=== PATIENT | female | born 1945 | race Caucasian/White ===

== ENCOUNTER 2016-10-23 12:24 | Emergency (ER) | payer MEDICARE, OTHER ==
[~2016-10-23] VITALS: Ht 165.1 cm; Wt 97.1 kg
[~2016-10-23 12:24] MED LIST: ACET65TA PO; ALEN70TA39 PO; AMLO5TAB OR; AMLO5TAB PO; AMLO5TAB2 PO; ASPI81TA83 PO; BABY81CH OR; BENZEPRIL; BUME1TAB OR; BUME2TAB PO; BUPR150T3 PO; CALCCHW12 OR; CALCCHW12 PO; COUMADIN PO; DESYREL PO; FERR325T PO; FERR325T3 PO; FERR83TA OR; FLUO20CA8 PO; HYDR10TA3 OR; IRON28TA OR; LEVO100T OR; LEVO100T PO; LEVO125T41 PO; LEVO88TA4 OR; LISI2.5T3 PO; METF500T4 PO; MILKSUS PO; OMEP20TA7 PO; PERC5TAB6 PO; PERC5TAB8 PO; PERC7.5T8 PO; PRAV40TA2 PO; PRIL20CA OR; PROZ20CA OR; PROZ20CA PO; TRAZ50TA4 PO; TRAZADONE PO; byetta OR
[2016-10-23] MEDS ORDERED: VITA100041 PO (12:38)
[2016-10-23] MEDS ORDERED: ASPI81TA85 PO (12:38)
[2016-10-23] MEDS ORDERED: OMEP20CA3 PO (12:38)
[2016-10-23] MEDS ORDERED: CHEW500C2 PO (12:38)
[2016-10-23] MEDS ORDERED: ALEN70SO PO (12:38)
[2016-10-23] MEDS ORDERED: FLAXOIL4 PO (12:38)
[2016-10-23] MEDS ORDERED: NORCO, ANEXSIA 5/325MG TABLET (HYDROcodone/ACETAMINOPHEN) PO ONE (13:30)
[2016-10-23 13:44] LABS: BASO % 0.5 % (0.0-1.0); EOS # 0.2 K/mm3 (0.0-0.50); LARGE UNSTAINED CELL # 0.2 K/mm3 (0.0-0.4); LARGE UNSTAINED CELL % 1.9 % (0.0-4.0); LYMPH # 1.9 K/mm3 (1.5-4.5); LYMPH % 22.5 % (24.0-44.0); MEAN CORPUSCULAR HEMOGLOBIN 32.7 pg (27.0-33.0); MEAN CORPUSCULAR HGB CONC 32.2 g/dl (32.0-36.5); MEAN CORPUSCULAR VOLUME 101.7 fl (80.0-96.0); MONO # 0.5 K/mm3 (0.0-0.8); MONO % 5.5 % (0.0-5.0); NEUTROPHILS # 5.6 K/mm3 (1.8-7.7); NEUTROPHILS % 67.8 % (36.0-66.0); PLATELET COUNT, AUTOMATED 261 k/mm3 (150-450); RED CELL DISTRIBUTION WIDTH 12.6 % (11.5-14.5); WHITE BLOOD COUNT 8.3 K/mm3 (4.0-10.0)
[2016-10-23 14:11] LABS: CALCIUM LEVEL 8.4 MG/DL (8.8-10.2); CREATININE FOR GFR 1.32 MG/DL (0.55-1.02); GLOMERULAR FILTRATION RATE 42.4 (>39); POTASSIUM SERUM 3.8 MEQ/L (3.5-5.1); URIC ACID 8.5 MG/DL (2.6-6.0)
--- NOTE | 2016-10-23 14:55 | REP ---
Clinical: Pain. Technique: AP, lateral, bilateral oblique views of the left ankle. Findings: Advanced osteopenia and diffuse degenerative arthritic changes limit evaluation for subtle injury. No obvious acute fracture or dislocation is appreciated. Mild lateral widening of the ankle mortise suggests ligamentous laxity and likely chronic. Diffuse soft tissue swelling and vascular calcifications are identified along with moderate calcaneal heal spur. Impression: Advanced osteopenia and degenerative changes limit evaluation. No obvious acute fracture or dislocation. Signed by Reji Townsend MD 10/23/2016 02:46 P
--- NOTE | 2016-10-23 14:56 | REP ---
Clinical: Pain predominately centered at the first metatarsal. Technique: AP, lateral, bilateral oblique views of the left foot. Findings: Advanced osteopenia and diffuse degenerative arthritic changes limit evaluation for subtle injury. No obvious acute fracture or dislocation is appreciated. Diffuse soft tissue swelling and vascular calcifications are identified along with moderate calcaneal heal spur. Impression: Advanced osteopenia and degenerative changes limit evaluation. No obvious acute fracture or dislocation. Signed by Reji Townsend MD 10/23/2016 02:47 P
[2016-10-23 15:12] VITALS: BP 120/57
[2016-10-23] MEDS ORDERED: NORCOTAB PO (15:31)
== END 2016-10-23 15:41 | disposition home or self-care (01) ==
LOC: M ED 13:30
DX: M10.9 Gout, unspecified (principal); I10 Essential (primary) hypertension; E11.9 Type 2 diabetes mellitus without complications; I50.9 Heart failure, unspecified; E78.9 Disorder of lipoprotein metabolism, unspecified; E07.9 Disorder of thyroid, unspecified; F33.9 Major depressive disorder, recurrent, unspecified; M54.5 Low back pain; G47.33 Obstructive sleep apnea (adult) (pediatric); Z79.84 Long term (current) use of oral hypoglycemic drugs; Z79.899 Other long term (current) drug therapy; Z79.82 Long term (current) use of aspirin; Z88.0 Allergy status to penicillin

== ENCOUNTER → 2017-01-13 | Outpatient (CLI) | payer OTHER ==
[~2017-01-13] MED LIST changes: +ALEN70SO PO; +ASPI81TA85 PO; +CHEW500C2 PO; +FLAXOIL2 PO; +NORCOTAB PO; +OMEP20CA3 PO; +PERC5TAB12 PO; -PERC5TAB6 PO; +TRAZ50TA11 PO; -TRAZ50TA4 PO; +VITA-182 PO
--- NOTE | 2017-01-13 13:21 | REP ---
Right foot four views: There are no comparisons. There is demineralization. There is no fracture or dislocation. There is mild osteoarthritis of the PIP and DIP articulations, great toe MTP articulation and the tarsal ossicles. There are small calcaneal plantar and Achilles spurs. There are small calcifications inferior and anterior to the plantar spur compatible with plantar fasciitis. There is questionable soft tissue edema over the dorsum. This should be confirmed clinically. Signed by Enoc Pleitez MD 01/13/2017 01:12 P
== END ==
LOC: M WUC 12:43
PROVIDERS: ATTEND Physician Assistant
DX: M77.31 Calcaneal spur, right foot (principal)

== ENCOUNTER → 2017-02-11 | Outpatient (CLI) | payer OTHER ==
--- NOTE | 2017-02-11 12:12 | REPMRS ---
Patient History The patient states she had a clinical breast exam in 2016. Patient is postmenopausal and is nulliparous. Family history of colorectal cancer in maternal grandmother at age 50 or over and unknown cancer in brother at age 50 or over. Digital Mammo Screening Bilat: February 11, 2017 - Exam #: [id number] Bilateral CC and MLO view(s) were taken. Technologist: Stephie Ronquillo, Technologist Prior study comparison: January 06, 2016, bilateral digital mammo screening bilat performed at [facility]. January 14, 2015, bilateral digital mammo screening bilat performed at [facility]. October 24, 2013, bilateral digital mammo screening bilat performed at [facility]. FINDINGS: The breast tissue is almost entirely fat. There has been no change in the appearance of the mammogram from the prior studies. There is no interval development of dominant mass, architectural distortion, or clustered microcalcification typical of malignancy. ASSESSMENT: BI-RADS/ACR category 1 mammogram. Negative. Recommendation Routine screening mammogram of both breasts in 1 year (for women over age 40). This mammogram was interpreted with the aid of an FDA-approved computer-aided dectection system. Electronically Signed By: Fernie Armenta MD 02/11/17 [id number]
== END ==
LOC: M RAD 10:08
PROVIDERS: ATTEND Nurse Practitioner Adult Health
DX: Z12.31 Encounter for screening mammogram for malignant neoplasm of breast (principal)

== ENCOUNTER → 2017-03-31 | Outpatient (REF) | payer OTHER ==
[2017-03-31 13:55] LABS: URIC ACID 3.1 MG/DL (2.6-6.0)
== END ==
LOC: M LAB REF 12:55
PROVIDERS: ATTEND Nurse Practitioner Adult Health
DX: M10.9 Gout, unspecified (principal); R20.9 Unspecified disturbances of skin sensation

== ENCOUNTER → 2017-06-10 | Outpatient (CLI) | payer OTHER ==
[2017-06-10 12:47] LABS: HEMATOCRIT 36.2 % (36.0-47.0); HEMOGLOBIN 11.6 g/dl (12.0-16.0); MEAN CORPUSCULAR HEMOGLOBIN 32.2 pg (27.0-33.0); MEAN CORPUSCULAR VOLUME 100.6 fl (80.0-96.0); PLATELET COUNT, AUTOMATED 341 10^3/uL (150-450); RED CELL DISTRIBUTION WIDTH 14.5 % (11.5-14.5); WHITE BLOOD COUNT 8.9 10^3/uL (4.0-10.0)
[2017-06-10 13:03] LABS: INR 0.95; PROTHROMBIN TIME 12.8 SECONDS (12.4-14.5)
[2017-06-10 13:04] LABS: APPEARANCE, URINE CLEAR (CLEAR); BACTERIA, URINE AUTO NEGATIVE (NEGATIVE); BILIRUBIN, URINE AUTO NEGATIVE (NEGATIVE); BLOOD, URINE BLOOD NEGATIVE (NEGATIVE); COLOR, URINE YELLOW (YELLOW); GLUCOSE, URINE (UA) AUTO NEGATIVE (NEGATIVE); KETONE, URINE AUTO NEGATIVE (NEGATIVE); LEUKOCYTE ESTERASE, URINE AUTO NEGATIVE (NEGATIVE); NITRITE, URINE AUTO NEGATIVE (NEGATIVE); PROTEIN, URINE AUTO NEGATIVE (NEGATIVE); RBC, URINE AUTO 0 /HPF (0-3); SPECIFIC GRAVITY URINE AUTO 1.021 (1.002-1.035); SQUAMOUS EPITHELIAL CELL UR AU 0 /HPF (0-6); WBC, URINE AUTO 1 /HPF (0-3)
[2017-06-10 13:05] LABS: ALBUMIN 3.7 GM/DL (3.2-5.2); ALBUMIN/GLOBULIN RATIO 1.09 (1.00-1.93); ALKALINE PHOSPHATASE 120 U/L (45-117); ALT/SGPT 38 U/L (12-78); ANION GAP 7 MEQ/L (8-16); AST/SGOT 39 U/L (7-37); BILIRUBIN,TOTAL 0.2 MG/DL (0.2-1.0); BLOOD UREA NITROGEN 41 MG/DL (7-18); CALCIUM LEVEL 10.6 MG/DL (8.8-10.2); CARBON DIOXIDE LEVEL 31 MEQ/L (21-32); CHLORIDE LEVEL 104 MEQ/L (98-107); CREATININE FOR GFR 1.22 MG/DL (0.55-1.02); GLOMERULAR FILTRATION RATE 46.3 (>39); GLUCOSE, FASTING 109 MG/DL (83-110); POTASSIUM SERUM 4.5 MEQ/L (3.5-5.1); SODIUM LEVEL 142 MEQ/L (136-145); TOTAL PROTEIN 7.1 GM/DL (6.4-8.2)
[2017-06-10 13:50] LABS: ERYTHROCYTE SEDIMENTATION RATE 65 mm/hr (0-30)
== END ==
LOC: M ADMPAT 10:33
DX: M17.12 Unilateral primary osteoarthritis, left knee (principal); Z79.01 Long term (current) use of anticoagulants
CPT/HCPCS: 71046

== ENCOUNTER → 2017-06-16 | Outpatient (REF) | payer OTHER ==
[2017-06-16 16:00] LABS: PHOSPHORUS LEVEL 2.8 MG/DL (2.5-4.9)
[2017-06-16 16:12] LABS: PTH INTACT 116.4 PG/ML (14.0-72.0)
== END ==
LOC: M LAB REF 15:29
DX: E83.52 Hypercalcemia (principal)
CPT/HCPCS: 84100

== ENCOUNTER 2017-06-22 07:13 | Inpatient (IN) | payer OTHER ==
[2017-06-22] MEDS: LR 1,000 ML IV ×3 (08:10→12:30)
[2017-06-22 08:18] LABS: GLUCOSE, FASTING 115 MG/DL (83-110)
[2017-06-22] MEDS ORDERED: MIDAZOLAM INJ 2 MG/2 ML VIAL (J2250) As Ordered ×2 (08:42→08:52)
[2017-06-22] MEDS ORDERED: fentaNYL 100 MCG/2 ML INJECTION (J3010) As Ordered ×2 (08:42→08:52)
[2017-06-22] MEDS: fentaNYL 100 MCG/2 ML INJECTION (J3010) IV (09:22)
[2017-06-22] MEDS: MIDAZOLAM INJ 2 MG/2 ML VIAL (J2250) IV (09:22)
[2017-06-22] MEDS ORDERED: ePHEDrine INJ 50 MG/ML VIAL As Ordered (09:56)
[2017-06-22] MEDS: CLINDAMYCIN 900 MG in APPROPRIATE DILUENT 1 EA IV ×2 (09:58→18:08)
[2017-06-22] MEDS: CLINDAMYCIN INJ 900MG/6ML VIAL As Ordered (10:16)
[2017-06-22] MEDS: EPINEPHrine INJ 1 MG/ML 1ML AMP As Ordered (10:16)
[2017-06-22] MEDS: TRANEXAMIC ACID 100 MG/ML 10ML VIAL As Ordered (10:17)
[2017-06-22] MEDS: BUPIVACAINE LIPOSOME/PF 1.3% 20 ML VIAL (13.3MG/ML)(EXPAREL) As Ordered (10:51)
[2017-06-22] MEDS ORDERED: ROPIvacaine 0.5% 30 ML INJECTION (J2795 PER 1MG) (10:52)
[2017-06-22] MEDS ORDERED: LIDOCAINE 1% MDV 20ML VIAL (10:52)
[2017-06-22] MEDS ORDERED: dexameTHASONE 10 MG/1 ML VIAL PRES.FREE (J1100) (10:52)
[2017-06-22] MEDS ORDERED: MORPHINE 1MG/ML IN 0.9% NACL 100ML IV BAG As Ordered (11:47)
[2017-06-22 12:10] LABS: BEDSIDE GLUCOSE 128 MG/DL (83-110)
[2017-06-22] MEDS ORDERED: NALOXONE INJ 0.4 MG/1 ML VIAL (J2310) IV (12:30)
[2017-06-22] MEDS ORDERED: EPIDURAL/PCA KEYS XX (12:30)
[2017-06-22] MEDS ORDERED: diphenhydrAMINE INJ 50MG/ML VIAL (J1200) IV (12:30)
[2017-06-22] MEDS ORDERED: NALBUPHINE HCL 10 MG/ML AMP (J2300) IV ×2 (12:30)
[2017-06-22] MEDS ORDERED: FLEET ENEMA PR (12:30)
[2017-06-22] MEDS ORDERED: ACETAMINOPHEN TAB 650MG DOSE (2X325MG) PO (12:30)
[2017-06-22] MEDS ORDERED: fentaNYL 100 MCG/2 ML INJECTION (J3010) IV (12:30)
[2017-06-22] MEDS ORDERED: ONDANSETRON 4MG/2ML VIAL (J2405) IV ×3 (12:30)
[2017-06-22] MEDS ORDERED: MORPHINE 1MG/ML IN 0.9% NACL 100ML IV BAG IV (12:30)
[2017-06-22] MEDS ORDERED: GLUCOSE 4 GM CHEW TABLET PO (17:15)
[2017-06-22] MEDS ORDERED: GLUCAGON FOR INJ 1 MG VIAL (J1610) SC (17:15)
[2017-06-22] MEDS ORDERED: DEXTROSE 50% 50 ML SYRINGE IV (17:15)
[2017-06-22] MEDS ORDERED: POLYVINYL ALCOHOL OPHTH SOLN 15 ML(LIQUITEARS) OU (17:15)
[2017-06-22] MEDS: HumaLOG INSULIN (NovoLOG) PER UNIT SC ×2 (17:30→20:47)
[2017-06-22] MEDS: WARFARIN SOD 5 MG TAB PO (18:08)
[2017-06-22] MEDS: FAMOTIDINE 20 MG TAB PO (20:31)
[2017-06-22] MEDS: PRAVASTATIN 20 MG TAB PO (20:31)
[2017-06-23] MEDS: LR 1,000 ML IV (01:30)
[2017-06-23] MEDS: CLINDAMYCIN 900 MG in APPROPRIATE DILUENT 1 EA IV (01:30)
[2017-06-23 02:10] LABS: BEDSIDE GLUCOSE 270 MG/DL (83-110)
[2017-06-23] MEDS: LEVOTHYROXINE 137MCG TABLET (0.137MG) PO (06:06)
[2017-06-23] MEDS ORDERED: ONDANSETRON 4 MG TAB (S0181) PO (06:30)
[2017-06-23] MEDS ORDERED: PERCOCET 5MG/325MG TAB PO (06:30)
[2017-06-23 06:58] LABS: HEMATOCRIT 30.8 % (36.0-47.0); MEAN CORPUSCULAR HEMOGLOBIN 32.4 pg (27.0-33.0); MEAN CORPUSCULAR HGB CONC 32.5 g/dl (32.0-36.5); MEAN CORPUSCULAR VOLUME 99.7 fl (80.0-96.0); PLATELET COUNT, AUTOMATED 239 10^3/uL (150-450); RED BLOOD COUNT 3.09 10^6/uL (4.00-5.40); RED CELL DISTRIBUTION WIDTH 14.7 % (11.5-14.5); WHITE BLOOD COUNT 8.8 10^3/uL (4.0-10.0)
[2017-06-23 07:16] LABS: INR 1.12; PROTHROMBIN TIME 14.6 SECONDS (12.4-14.5)
[2017-06-23 07:18] LABS: ANION GAP 8 MEQ/L (8-16); BLOOD UREA NITROGEN 25 MG/DL (7-18); CARBON DIOXIDE LEVEL 26 MEQ/L (21-32); CHLORIDE LEVEL 107 MEQ/L (98-107); CREATININE FOR GFR 0.99 MG/DL (0.55-1.02); GLOMERULAR FILTRATION RATE 58.9 (>39); GLUCOSE, FASTING 153 MG/DL (83-110); MAGNESIUM LEVEL 1.8 MG/DL (1.8-2.4); POTASSIUM SERUM 4.3 MEQ/L (3.5-5.1); SODIUM LEVEL 141 MEQ/L (136-145)
[2017-06-23] MEDS: MIRALAX *UNIT DOSE* 17GM PACKET PO (07:58)
[2017-06-23] MEDS: MOM 30ML SUSPENSION UDC PO (07:58)
[2017-06-23] MEDS: SENOKOT S TAB PO ×2 (07:59→20:40)
[2017-06-23] MEDS: FLUoxetine 20 MG CAP PO (07:59)
[2017-06-23] MEDS: buPROPion **XL** TABLET 150MG (WELLBUTRIN XL) PO (07:59)
[2017-06-23] MEDS: FERROUS SULFATE 325MG TAB PO (07:59)
[2017-06-23] MEDS: HumaLOG INSULIN (NovoLOG) PER UNIT SC ×4 (08:00→20:36)
[2017-06-23 11:13] LABS: BEDSIDE GLUCOSE 114 MG/DL (83-110)
[2017-06-23] MEDS: PERCOCET 5MG/325MG TAB PO ×2 (12:26→18:59)
[2017-06-23] MEDS: ALLOPURINOL 300 MG TAB PO (13:24)
[2017-06-23 17:23] LABS: BEDSIDE GLUCOSE 135 MG/DL (83-110)
[2017-06-23] MEDS: WARFARIN SOD 5 MG TAB PO (17:45)
[2017-06-23 20:34] LABS: BEDSIDE GLUCOSE 112 MG/DL (83-110)
[2017-06-23] MEDS: FAMOTIDINE 20 MG TAB PO (20:40)
[2017-06-23] MEDS: PRAVASTATIN 20 MG TAB PO (20:40)
[2017-06-24] MEDS: PERCOCET 5MG/325MG TAB PO ×3 (00:01→09:03)
[2017-06-24] MEDS: LEVOTHYROXINE 137MCG TABLET (0.137MG) PO (05:50)
[2017-06-24 06:07] LABS: BEDSIDE GLUCOSE 122 MG/DL (83-110)
[2017-06-24 06:45] LABS: HEMATOCRIT 27.8 % (36.0-47.0); HEMOGLOBIN 9.1 g/dl (12.0-16.0); MEAN CORPUSCULAR HEMOGLOBIN 33.1 pg (27.0-33.0); MEAN CORPUSCULAR HGB CONC 32.7 g/dl (32.0-36.5); MEAN CORPUSCULAR VOLUME 101.1 fl (80.0-96.0); PLATELET COUNT, AUTOMATED 201 10^3/uL (150-450); RED BLOOD COUNT 2.75 10^6/uL (4.00-5.40); RED CELL DISTRIBUTION WIDTH 15.1 % (11.5-14.5)
[2017-06-24 07:00] LABS: INR 1.25; PROTHROMBIN TIME 15.9 SECONDS (12.4-14.5)
[2017-06-24] MEDS: HumaLOG INSULIN (NovoLOG) PER UNIT SC (07:30)
[2017-06-24] MEDS: ENOXAPARIN 40 MG/0.4 ML SYRINGE (J1650) SC (09:01)
[2017-06-24] MEDS: FLUoxetine 20 MG CAP PO (09:01)
[2017-06-24] MEDS: MIRALAX *UNIT DOSE* 17GM PACKET PO (09:01)
[2017-06-24] MEDS: MOM 30ML SUSPENSION UDC PO (09:01)
[2017-06-24] MEDS: ALLOPURINOL 300 MG TAB PO (09:02)
[2017-06-24] MEDS: SENOKOT S TAB PO (09:02)
[2017-06-24] MEDS: buPROPion **XL** TABLET 150MG (WELLBUTRIN XL) PO (09:02)
[2017-06-24] MEDS: FERROUS SULFATE 325MG TAB PO (09:02)
[2017-06-24] MEDS: BUMETANIDE 1 MG TAB PO (09:02)
== END 2017-06-24 10:52 | disposition home health service (06) | DRG 470 ==
LOC: M OR 07:13 → M MS5PR 14:30
PROVIDERS: Orthopaedic Surgery
PROC: 0SRD0JA Replacement of Left Knee Joint with Synthetic Substitute, Uncemented, Open Approach (ICD-10-PCS; principal; 2017-06-22 09:30)
DX: M17.12 Unilateral primary osteoarthritis, left knee (principal); Z79.899 Other long term (current) drug therapy; Z88.0 Allergy status to penicillin; Z79.82 Long term (current) use of aspirin; E11.9 Type 2 diabetes mellitus without complications; I12.9 Hypertensive chronic kidney disease with stage 1 through stage 4 chronic kidney disease, or unspecified chronic kidney disease; E03.9 Hypothyroidism, unspecified; N18.3 Chronic kidney disease, stage 3 (moderate); K21.9 Gastro-esophageal reflux disease without esophagitis; D50.9 Iron deficiency anemia, unspecified; E78.5 Hyperlipidemia, unspecified; M10.9 Gout, unspecified; F32.9 Major depressive disorder, single episode, unspecified

== ENCOUNTER → 2017-06-27 | Outpatient (REF) | payer OTHER ==
[2017-06-27 16:24] LABS: INR 1.85; PROTHROMBIN TIME 21.9 SECONDS (12.4-14.5)
== END ==
LOC: M SHH 16:03
DX: Z79.01 Long term (current) use of anticoagulants (principal)
CPT/HCPCS: 85610

== ENCOUNTER → 2017-06-30 | Outpatient (REF) | payer OTHER ==
[2017-06-30 12:37] LABS: INR 2.58; PROTHROMBIN TIME 28.7 SECONDS (12.4-14.5)
== END ==
LOC: M SHH 11:47
DX: Z79.01 Long term (current) use of anticoagulants (principal)
CPT/HCPCS: 85610

== ENCOUNTER → 2017-07-04 | Outpatient (REF) | payer OTHER ==
[2017-07-04 10:56] LABS: INR 2.72
== END ==
LOC: M SHH 10:25
DX: Z79.01 Long term (current) use of anticoagulants (principal)
CPT/HCPCS: 85610

== ENCOUNTER → 2017-07-07 | Outpatient (REF) | payer OTHER | LOC: M SHH 15:17 | DX: Z79.01 Long term (current) use of anticoagulants (principal) ==

== ENCOUNTER → 2017-07-08 | Outpatient (REF) | payer OTHER ==
[2017-07-08 12:52] LABS: INR 2.28
== END ==
LOC: M SHH 11:15
DX: Z79.01 Long term (current) use of anticoagulants (principal)
CPT/HCPCS: 85610

== ENCOUNTER → 2017-07-11 | Outpatient (REF) | payer OTHER ==
[2017-07-11 15:28] LABS: INR 1.58; PROTHROMBIN TIME 19.3 SECONDS (12.4-14.5)
== END ==
LOC: M SHH 15:02
DX: Z79.01 Long term (current) use of anticoagulants (principal)
CPT/HCPCS: 85610

== ENCOUNTER → 2017-07-14 | Outpatient (REF) | payer OTHER ==
[2017-07-14 13:07] LABS: PROTHROMBIN TIME 16.5 SECONDS (12.4-14.5)
== END ==
LOC: M SHH 12:17
DX: Z51.81 Encounter for therapeutic drug level monitoring (principal); Z79.01 Long term (current) use of anticoagulants
CPT/HCPCS: 85610

== ENCOUNTER → 2017-07-18 | Outpatient (REF) | payer OTHER ==
[2017-07-18 16:29] LABS: INR 1.57; PROTHROMBIN TIME 19.2 SECONDS (12.4-14.5)
== END ==
LOC: M LAB REF 15:47
DX: Z79.01 Long term (current) use of anticoagulants (principal)
CPT/HCPCS: 85610

== ENCOUNTER → 2017-10-28 | Outpatient (REF) | payer OTHER ==
[2017-10-28 12:57] LABS: PTH INTACT 59.7 PG/ML (18.5-88.0)
[2017-10-28 13:02] LABS: PHOSPHORUS LEVEL 3.2 MG/DL (2.5-4.9)
== END ==
LOC: M LAB REF 12:08
DX: I12.9 Hypertensive chronic kidney disease with stage 1 through stage 4 chronic kidney disease, or unspecified chronic kidney disease (principal); N18.3 Chronic kidney disease, stage 3 (moderate)
CPT/HCPCS: 84100

== ENCOUNTER 2017-12-03 10:11 | Inpatient (IN) | payer OTHER ==
[2017-12-03 11:21] LABS: HEMATOCRIT 33.7 % (36.0-47.0); MEAN CORPUSCULAR HEMOGLOBIN 32.5 pg (27.0-33.0); MEAN CORPUSCULAR HGB CONC 32.6 g/dl (32.0-36.5); MEAN CORPUSCULAR VOLUME 99.7 fl (80.0-96.0); PLATELET COUNT, AUTOMATED 219 10^3/uL (150-450); RED BLOOD COUNT 3.38 10^6/uL (4.00-5.40); WHITE BLOOD COUNT 8.2 10^3/uL (4.0-10.0)
[2017-12-03] MEDS: NS 1,000 ML IV ×2 (11:27→14:41)
[2017-12-03] MEDS: MORPHINE 4 MG/ML 1ML VIAL/SYRINGE (J2270) IV ×2 (11:27→14:11)
[2017-12-03] MEDS: ONDANSETRON 4MG/2ML VIAL (J2405) IV (11:27)
[2017-12-03 11:37] LABS: INR 0.92; PROTHROMBIN TIME 12.4 SECONDS (12.1-14.4)
[2017-12-03 11:38] LABS: PARTIAL THROMBOPLASTIN TIME 24.8 SECONDS (25.4-37.6)
[2017-12-03 11:56] LABS: ANION GAP 9 MEQ/L (8-16); BLOOD UREA NITROGEN 31 MG/DL (7-18); CALCIUM LEVEL 9.9 MG/DL (8.8-10.2); CARBON DIOXIDE LEVEL 29 MEQ/L (21-32); CHLORIDE LEVEL 105 MEQ/L (98-107); CREATININE FOR GFR 1.15 MG/DL (0.55-1.30); FREE T4 1.26 NG/DL (0.76-1.46); GLOMERULAR FILTRATION RATE 49.5 (>39); GLUCOSE, FASTING 120 MG/DL (70-100); POTASSIUM SERUM 3.5 MEQ/L (3.5-5.1); SODIUM LEVEL 143 MEQ/L (136-145); THYROID STIMULATING HORMONE 0.698 uIU/ML (0.358-3.740)
[2017-12-03] MEDS ORDERED: GLUCOSE 4 GM CHEW TABLET PO (14:15)
[2017-12-03] MEDS ORDERED: BISACODYL 5 MG TAB PO (14:15)
[2017-12-03] MEDS ORDERED: COLCHICINE 0.6 MG TAB PO (14:15)
[2017-12-03] MEDS ORDERED: GLUCAGON FOR INJ 1 MG VIAL (J1610) SC (14:15)
[2017-12-03] MEDS ORDERED: ONDANSETRON 4MG/2ML VIAL (J2405) IV ×2 (14:15→22:30)
[2017-12-03] MEDS ORDERED: DEXTROSE 50% 50 ML SYRINGE IV (14:15)
[2017-12-03] MEDS ORDERED: POLYVINYL ALCOHOL OPHTH SOLN 15 ML(LIQUITEARS) OU (14:15)
[2017-12-03] MEDS ORDERED: MORPHINE 4 MG/ML 1ML VIAL/SYRINGE (J2270) IV ×2 (14:15→22:30)
[2017-12-03 16:26] LABS: BEDSIDE GLUCOSE 97 MG/DL (83-110)
[2017-12-03] MEDS: HumaLOG INSULIN (NovoLOG) PER UNIT SC ×2 (16:34→23:08)
[2017-12-03] MEDS: CLINDAMYCIN 600 MG in APPROPRIATE DILUENT 1 EA IV (18:00)
[2017-12-03] MEDS ORDERED: LIDOCAINE 2% INJ 100 MG/5 ML SDV (FOR ANES.) As Ordered (18:57)
[2017-12-03] MEDS ORDERED: PROPOFOL 200 MG/20 ML VIAL As Ordered ×2 (18:57→20:36)
[2017-12-03] MEDS ORDERED: fentaNYL 100 MCG/2 ML INJECTION (J3010) As Ordered (18:58)
[2017-12-03] MEDS ORDERED: MIDAZOLAM INJ 2 MG/2 ML VIAL (J2250) As Ordered (18:58)
[2017-12-03] MEDS: CLINDAMYCIN 600 MG/50 ML PREMIX BAG As Ordered (19:14)
[2017-12-03] MEDS ORDERED: ePHEDrine SULFATE 25 MG/5 ML(5MG/ML) SYRINGE As Ordered (19:56)
[2017-12-03] MEDS ORDERED: KETOROLAC 60 MG/2 ML VIAL (J1885) As Ordered (21:31)
[2017-12-03] MEDS ORDERED: ONDANSETRON 4MG/2ML VIAL (J2405) As Ordered (21:31)
[2017-12-03] MEDS: CLINDAMYCIN INJ 900MG/6ML VIAL As Ordered (21:42)
[2017-12-03] MEDS: BUPIVACAINE/EPIN 0.25% 30 ML VIAL As Ordered (21:43)
[2017-12-03] MEDS ORDERED: HEPARIN SOD (PORCINE) 5000 UNITS/ML VIAL SC (22:00)
[2017-12-03] MEDS: LR 1,000 ML IV ×2 (22:30→23:09)
[2017-12-03] MEDS ORDERED: fentaNYL 100 MCG/2 ML INJECTION (J3010) IV (22:30)
[2017-12-03] MEDS ORDERED: PERCOCET 5MG/325MG TAB PO (22:30)
[2017-12-03 23:06] LABS: BEDSIDE GLUCOSE 91 MG/DL (83-110)
[2017-12-03] MEDS: LEVOTHYROXINE 137MCG TABLET (0.137MG) PO (23:07)
[2017-12-03] MEDS: SENOKOT S TAB PO (23:07)
[2017-12-03] MEDS: FAMOTIDINE 20 MG TAB PO (23:08)
[2017-12-03] MEDS: PRAVASTATIN 20 MG TAB PO (23:08)
[2017-12-03] MEDS: OMEPRAZOLE 20 MG CAP PO (23:08)
[2017-12-03] MEDS: FLUoxetine 20 MG CAP PO (23:08)
[2017-12-03] MEDS: LATANOPROST 0.005% OPHTH SOLN 2.5 ML OU (23:09)
[2017-12-03] MEDS: HEPARIN SOD (PORCINE) 5000 UNITS/ML VIAL SQ (23:10)
[2017-12-04] MEDS: PERCOCET 5MG/325MG TAB PO ×5 (00:47→20:48)
[2017-12-04] MEDS: CLINDAMYCIN 600 MG in APPROPRIATE DILUENT 1 EA IV ×2 (03:56→08:18)
[2017-12-04 06:02] LABS: BASO % 0.5 % (0.0-1.0); EOS # 0.2 10^3/uL (0.0-0.50); EOS % 2.4 % (0.0-3.0); HEMATOCRIT 29.7 % (36.0-47.0); HEMOGLOBIN 9.5 g/dl (12.0-15.5); IMMATURE GRANULOCYTE % 0.5 % (0-3.0); LYMPH # 1.4 10^3/uL (1.5-4.5); LYMPH % 15.9 % (24.0-44.0); MEAN CORPUSCULAR HEMOGLOBIN 32.6 pg (27.0-33.0); MEAN CORPUSCULAR VOLUME 102.1 fl (80.0-96.0); MONO % 11.6 % (0.0-5.0); NEUTROPHILS # 5.9 10^3/uL (1.8-7.7); NEUTROPHILS % 69.1 % (36.0-66.0); PLATELET COUNT, AUTOMATED 186 10^3/uL (150-450); RED BLOOD COUNT 2.91 10^6/uL (4.00-5.40); RED CELL DISTRIBUTION WIDTH 15.1 % (11.5-14.5); WHITE BLOOD COUNT 8.5 10^3/uL (4.0-10.0)
[2017-12-04 06:06] LABS: ANION GAP 8 MEQ/L (8-16); BLOOD UREA NITROGEN 24 MG/DL (7-18); CALCIUM LEVEL 8.6 MG/DL (8.8-10.2); CARBON DIOXIDE LEVEL 29 MEQ/L (21-32); CHLORIDE LEVEL 107 MEQ/L (98-107); CREATININE FOR GFR 1.07 MG/DL (0.55-1.30); GLOMERULAR FILTRATION RATE 53.8 (>39); GLUCOSE, FASTING 125 MG/DL (70-100); POTASSIUM SERUM 3.6 MEQ/L (3.5-5.1); SODIUM LEVEL 144 MEQ/L (136-145)
[2017-12-04] MEDS: ASPIRIN ENTERIC 325 MG TAB PO (08:16)
[2017-12-04] MEDS: HumaLOG INSULIN (NovoLOG) PER UNIT SC ×4 (08:16→21:00)
[2017-12-04] MEDS: CALCIUM CARBONATE 500 MG CHEW U/D PO (08:16)
[2017-12-04] MEDS: BUMETANIDE 1 MG TAB PO (08:17)
[2017-12-04] MEDS: SENOKOT S TAB PO ×2 (08:17→20:49)
[2017-12-04] MEDS: buPROPion **XL** TABLET 150MG (WELLBUTRIN XL) PO (08:17)
[2017-12-04] MEDS: FERROUS SULFATE 325MG TAB PO (08:17)
[2017-12-04] MEDS: ALLOPURINOL 300 MG TAB PO (08:17)
[2017-12-04] MEDS: HEPARIN SOD (PORCINE) 5000 UNITS/ML VIAL SQ ×2 (08:18→20:47)
[2017-12-04] MEDS: METAMUCIL (PSYLLIUM) PACKET PO (08:19)
[2017-12-04] MEDS: VITAMIN D 1,000 INTERNATIONAL UNITS TABLET PO (08:20)
[2017-12-04] MEDS: ACETAMINOPHEN TAB 650MG DOSE (2X325MG) PO (08:23)
[2017-12-04] MEDS: LR 1,000 ML IV (11:00)
[2017-12-04 12:02] LABS: BEDSIDE GLUCOSE 131 MG/DL (83-110)
[2017-12-04 16:36] LABS: BEDSIDE GLUCOSE 132 MG/DL (83-110)
[2017-12-04] MEDS: OMEPRAZOLE 20 MG CAP PO (20:48)
[2017-12-04] MEDS: LEVOTHYROXINE 137MCG TABLET (0.137MG) PO (20:49)
[2017-12-04] MEDS: PRAVASTATIN 20 MG TAB PO (20:49)
[2017-12-04] MEDS: FAMOTIDINE 20 MG TAB PO (20:49)
[2017-12-04] MEDS: LATANOPROST 0.005% OPHTH SOLN 2.5 ML OU (20:49)
[2017-12-04] MEDS: FLUoxetine 20 MG CAP PO (20:49)
[2017-12-04 21:06] LABS: BEDSIDE GLUCOSE 121 MG/DL (83-110)
[2017-12-05] MEDS: PERCOCET 5MG/325MG TAB PO ×4 (01:34→21:26)
[2017-12-05 06:16] LABS: BEDSIDE GLUCOSE 113 MG/DL (83-110)
[2017-12-05 07:53] LABS: HEMATOCRIT 28.9 % (36.0-47.0); HEMOGLOBIN 9.6 g/dl (12.0-15.5); MEAN CORPUSCULAR HEMOGLOBIN 32.7 pg (27.0-33.0); MEAN CORPUSCULAR HGB CONC 33.2 g/dl (32.0-36.5); MEAN CORPUSCULAR VOLUME 98.3 fl (80.0-96.0); PLATELET COUNT, AUTOMATED 186 10^3/uL (150-450); RED BLOOD COUNT 2.94 10^6/uL (4.00-5.40); RED CELL DISTRIBUTION WIDTH 15.2 % (11.5-14.5); WHITE BLOOD COUNT 7.7 10^3/uL (4.0-10.0)
[2017-12-05 08:12] LABS: ANION GAP 8 MEQ/L (8-16); BLOOD UREA NITROGEN 18 MG/DL (7-18); CALCIUM LEVEL 8.2 MG/DL (8.8-10.2); CARBON DIOXIDE LEVEL 29 MEQ/L (21-32); CHLORIDE LEVEL 105 MEQ/L (98-107); CREATININE FOR GFR 0.99 MG/DL (0.55-1.30); GLOMERULAR FILTRATION RATE 58.9 (>39); GLUCOSE, FASTING 123 MG/DL (70-100); POTASSIUM SERUM 3.5 MEQ/L (3.5-5.1); SODIUM LEVEL 142 MEQ/L (136-145)
[2017-12-05] MEDS: HumaLOG INSULIN (NovoLOG) PER UNIT SC ×4 (08:19→21:27)
[2017-12-05] MEDS: BUMETANIDE 1 MG TAB PO (09:46)
[2017-12-05] MEDS: buPROPion **XL** TABLET 150MG (WELLBUTRIN XL) PO (09:46)
[2017-12-05] MEDS: CALCIUM CARBONATE 500 MG CHEW U/D PO (09:46)
[2017-12-05] MEDS: FERROUS SULFATE 325MG TAB PO (09:46)
[2017-12-05] MEDS: ALLOPURINOL 300 MG TAB PO (09:46)
[2017-12-05] MEDS: SENOKOT S TAB PO ×2 (09:47→21:25)
[2017-12-05] MEDS: METAMUCIL (PSYLLIUM) PACKET PO (09:47)
[2017-12-05 11:32] LABS: BEDSIDE GLUCOSE 114 MG/DL (83-110)
[2017-12-05 12:10] LABS: BEDSIDE GLUCOSE 112 MG/DL (83-110)
[2017-12-05 16:48] LABS: BEDSIDE GLUCOSE 173 MG/DL (83-110)
[2017-12-05] MEDS: RIVAROXABAN 10 MG TAB (XARELTO) PO (18:15)
[2017-12-05 20:41] LABS: BEDSIDE GLUCOSE 158 MG/DL (83-110)
[2017-12-05] MEDS: OMEPRAZOLE 20 MG CAP PO (21:25)
[2017-12-05] MEDS: PRAVASTATIN 20 MG TAB PO (21:25)
[2017-12-05] MEDS: FAMOTIDINE 20 MG TAB PO (21:25)
[2017-12-05] MEDS: FLUoxetine 20 MG CAP PO (21:25)
[2017-12-05] MEDS: LEVOTHYROXINE 137MCG TABLET (0.137MG) PO (21:25)
[2017-12-05] MEDS: LATANOPROST 0.005% OPHTH SOLN 2.5 ML OU (21:26)
[2017-12-06 06:28] LABS: HEMATOCRIT 28.8 % (36.0-47.0); HEMOGLOBIN 9.5 g/dl (12.0-15.5); MEAN CORPUSCULAR HEMOGLOBIN 32.5 pg (27.0-33.0); MEAN CORPUSCULAR VOLUME 98.6 fl (80.0-96.0); PLATELET COUNT, AUTOMATED 186 10^3/uL (150-450); RED BLOOD COUNT 2.92 10^6/uL (4.00-5.40); RED CELL DISTRIBUTION WIDTH 15.2 % (11.5-14.5)
[2017-12-06 06:48] LABS: ANION GAP 7 MEQ/L (8-16); BLOOD UREA NITROGEN 19 MG/DL (7-18); CALCIUM LEVEL 8.4 MG/DL (8.8-10.2); CARBON DIOXIDE LEVEL 29 MEQ/L (21-32); CHLORIDE LEVEL 107 MEQ/L (98-107); CREATININE FOR GFR 1.03 MG/DL (0.55-1.30); GLOMERULAR FILTRATION RATE 56.2 (>39); GLUCOSE, FASTING 122 MG/DL (70-100); POTASSIUM SERUM 3.4 MEQ/L (3.5-5.1); SODIUM LEVEL 143 MEQ/L (136-145)
[2017-12-06] MEDS: METAMUCIL (PSYLLIUM) PACKET PO (08:18)
[2017-12-06] MEDS: HumaLOG INSULIN (NovoLOG) PER UNIT SC ×4 (08:18→21:08)
[2017-12-06] MEDS: FERROUS SULFATE 325MG TAB PO (08:19)
[2017-12-06] MEDS: POTASSIUM CHLORIDE 10 MEQ SR TABLET PO (08:19)
[2017-12-06] MEDS: BUMETANIDE 1 MG TAB PO (08:19)
[2017-12-06] MEDS: CALCIUM CARBONATE 500 MG CHEW U/D PO (08:19)
[2017-12-06] MEDS: SENOKOT S TAB PO ×2 (08:19→21:05)
[2017-12-06] MEDS: ACETAMINOPHEN TAB 650MG DOSE (2X325MG) PO (08:19)
[2017-12-06] MEDS: buPROPion **XL** TABLET 150MG (WELLBUTRIN XL) PO (08:19)
[2017-12-06] MEDS: ALLOPURINOL 300 MG TAB PO (08:19)
[2017-12-06 11:57] LABS: BEDSIDE GLUCOSE 84 MG/DL (83-110)
[2017-12-06] MEDS: PERCOCET 5MG/325MG TAB PO ×3 (13:16→21:08)
[2017-12-06 17:02] LABS: BEDSIDE GLUCOSE 132 MG/DL (83-110)
[2017-12-06] MEDS: RIVAROXABAN 10 MG TAB (XARELTO) PO (17:31)
[2017-12-06] MEDS: LEVOTHYROXINE 137MCG TABLET (0.137MG) PO (21:04)
[2017-12-06] MEDS: FAMOTIDINE 20 MG TAB PO (21:04)
[2017-12-06] MEDS: FLUoxetine 20 MG CAP PO (21:04)
[2017-12-06] MEDS: PRAVASTATIN 20 MG TAB PO (21:05)
[2017-12-06] MEDS: OMEPRAZOLE 20 MG CAP PO (21:05)
[2017-12-06 21:07] LABS: BEDSIDE GLUCOSE 109 MG/DL (83-110)
[2017-12-06] MEDS: LATANOPROST 0.005% OPHTH SOLN 2.5 ML OU (21:08)
[2017-12-07 07:24] LABS: HEMATOCRIT 29.8 % (36.0-47.0); HEMOGLOBIN 9.8 g/dl (12.0-15.5); MEAN CORPUSCULAR HEMOGLOBIN 32.8 pg (27.0-33.0); MEAN CORPUSCULAR HGB CONC 32.9 g/dl (32.0-36.5); MEAN CORPUSCULAR VOLUME 99.7 fl (80.0-96.0); PLATELET COUNT, AUTOMATED 210 10^3/uL (150-450); RED BLOOD COUNT 2.99 10^6/uL (4.00-5.40); RED CELL DISTRIBUTION WIDTH 15.1 % (11.5-14.5); WHITE BLOOD COUNT 7.2 10^3/uL (4.0-10.0)
[2017-12-07] MEDS: HumaLOG INSULIN (NovoLOG) PER UNIT SC ×4 (07:30→21:00)
[2017-12-07 07:43] LABS: ANION GAP 6 MEQ/L (8-16); BLOOD UREA NITROGEN 20 MG/DL (7-18); CALCIUM LEVEL 8.1 MG/DL (8.8-10.2); CARBON DIOXIDE LEVEL 29 MEQ/L (21-32); CHLORIDE LEVEL 105 MEQ/L (98-107); CREATININE FOR GFR 0.92 MG/DL (0.55-1.30); GLOMERULAR FILTRATION RATE > 60.0 (>39); GLUCOSE, FASTING 116 MG/DL (70-100); POTASSIUM SERUM 3.7 MEQ/L (3.5-5.1); SODIUM LEVEL 140 MEQ/L (136-145)
[2017-12-07] MEDS: CALCIUM CARBONATE 500 MG CHEW U/D PO (08:10)
[2017-12-07] MEDS: FERROUS SULFATE 325MG TAB PO (08:10)
[2017-12-07] MEDS: BUMETANIDE 1 MG TAB PO (08:10)
[2017-12-07] MEDS: buPROPion **XL** TABLET 150MG (WELLBUTRIN XL) PO (08:10)
[2017-12-07] MEDS: ALLOPURINOL 300 MG TAB PO (08:10)
[2017-12-07] MEDS: SENOKOT S TAB PO ×2 (08:10→21:42)
[2017-12-07] MEDS: METAMUCIL (PSYLLIUM) PACKET PO (08:11)
[2017-12-07] MEDS: PERCOCET 5MG/325MG TAB PO ×3 (08:11→21:43)
[2017-12-07 11:56] LABS: BEDSIDE GLUCOSE 104 MG/DL (83-110)
[2017-12-07 16:21] LABS: BEDSIDE GLUCOSE 123 MG/DL (83-110)
[2017-12-07] MEDS: RIVAROXABAN 10 MG TAB (XARELTO) PO (17:23)
[2017-12-07 21:41] LABS: BEDSIDE GLUCOSE 109 MG/DL (83-110)
[2017-12-07] MEDS: OMEPRAZOLE 20 MG CAP PO (21:41)
[2017-12-07] MEDS: PRAVASTATIN 20 MG TAB PO (21:41)
[2017-12-07] MEDS: FLUoxetine 20 MG CAP PO (21:41)
[2017-12-07] MEDS: LEVOTHYROXINE 137MCG TABLET (0.137MG) PO (21:42)
[2017-12-07] MEDS: FAMOTIDINE 20 MG TAB PO (21:42)
[2017-12-07] MEDS: LATANOPROST 0.005% OPHTH SOLN 2.5 ML OU (21:44)
[2017-12-08] MEDS: PERCOCET 5MG/325MG TAB PO (07:02)
[2017-12-08 08:09] LABS: BEDSIDE GLUCOSE 119 MG/DL (83-110)
[2017-12-08] MEDS: buPROPion **XL** TABLET 150MG (WELLBUTRIN XL) PO (08:28)
[2017-12-08] MEDS: ALLOPURINOL 300 MG TAB PO (08:29)
[2017-12-08] MEDS: BUMETANIDE 1 MG TAB PO (08:29)
[2017-12-08] MEDS: CALCIUM CARBONATE 500 MG CHEW U/D PO (08:29)
[2017-12-08] MEDS: FERROUS SULFATE 325MG TAB PO (08:29)
[2017-12-08] MEDS: HumaLOG INSULIN (NovoLOG) PER UNIT SC (08:30)
[2017-12-08] MEDS: METAMUCIL (PSYLLIUM) PACKET PO (08:30)
[2017-12-08] MEDS: SENOKOT S TAB PO (08:30)
== END 2017-12-08 10:30 | disposition home or self-care (01) | DRG 494 ==
LOC: M ED 10:11 → M ED INP 14:07 → M MS5PR 15:46
PROC: 0QSG04Z Reposition Right Tibia with Internal Fixation Device, Open Approach (ICD-10-PCS; principal; 2017-12-03 15:23)
DX: M80.861A Other osteoporosis with current pathological fracture, right lower leg, initial encounter for fracture (principal); E11.9 Type 2 diabetes mellitus without complications; I10 Essential (primary) hypertension; M10.9 Gout, unspecified; K21.9 Gastro-esophageal reflux disease without esophagitis; E78.5 Hyperlipidemia, unspecified; E03.9 Hypothyroidism, unspecified; D50.9 Iron deficiency anemia, unspecified; R29.6 Repeated falls; F39 Unspecified mood [affective] disorder; Z79.899 Other long term (current) drug therapy; Z88.0 Allergy status to penicillin; M19.90 Unspecified osteoarthritis, unspecified site

== ENCOUNTER → 2017-12-20 | Outpatient (REF) | payer OTHER ==
[2017-12-20 13:51] LABS: TOTAL PROTEIN,RANDOM URINE 17.7 MG/DL (0.0-12.0)
[2017-12-20 14:15] LABS: TOTAL PROTEIN 7.2 GM/DL (6.4-8.2)
[2017-12-20 14:15] LABS: PHOSPHORUS LEVEL 2.9 MG/DL (2.5-4.9)
[2017-12-21 12:37] LABS: ALBUMIN 3.77 GM/DL (3.29-5.55); ALBUMIN % 52.3 % (55.8-66.1); ALPHA-1-GLOBULINS 0.36 GM/DL (0.17-0.41); ALPHA-2-GLOBULINS 0.99 GM/DL (0.42-0.99); ALPHA-2-GLOBULINS % 13.8 % (7.1-11.8); BETA-2-GLOBULINS 0.51 GM/DL (0.19-0.55); BETA-2-GLOBULINS % 7.1 % (3.2-6.5); GAMMA GLOBULIN % 14.8 % (11.1-18.8)
[2017-12-21 12:38] LABS: GAMMA GLOBULINS 1.07 GM/DL (0.65-1.58)
== END ==
LOC: M LAB REF 13:26
DX: N18.3 Chronic kidney disease, stage 3 (moderate) (principal)
CPT/HCPCS: 84100

== ENCOUNTER → 2019-06-01 | Outpatient (CLI) | payer MEDICARE ==
[~2019-06-01] MED LIST changes: -ALEN70TA39 PO; +ALEN70TA74 PO; -AMLO5TAB2 PO; +AMLO5TAB6 PO; +ASPI-527 PO; -BUME2TAB PO; +BUME2TAB3 PO; +COLC1TAB14 PO; +COUM2.5T17 PO; +D-3-50003 PO; +FLAX1200 PO; +FLUO20CA19 PO; +FLUO20CA20 PO; -FLUO20CA8 PO; +FOSA70TA PO; +HYDR-3715 PO; +LEVO137T2 PO; +LISI-1046 PO; -LISI2.5T3 PO; +METF-791 PO; -METF500T4 PO; -NORCOTAB PO; +OMEP-172 PO; -OMEP20CA3 PO; +PERCOCET PO; +RANI150T PO; +SIMB1SUS OU; +SYST1SOL OU; +TRAV04OPD OU; +TRAZ-252 PO; -TRAZ50TA11 PO; +WARF-23; +XARE10TA PO; +ZYLO300T6 PO
--- NOTE | 2019-06-01 09:25 | REPMRS ---
Patient History The patient states she had a clinical breast exam in 05/2019. Patient is postmenopausal and is nulliparous. Family history of colorectal cancer at age 50 or over in maternal grandmother, pancreatic cancer at age 50 or over in brother. No Hormone Replacement Therapy 3D TOMOSYNTHESIS WAS PERFORMED. The [facility] lifetime risk for breast cancer is 4.9%. Digital Woman Screen Mammo: June 01, 2019 - Exam #: [id number] Bilateral CC and MLO view(s) were taken. Technologist: Vy Cordova, Technologist Prior study comparison: June 02, 2018, bilateral digital mammo screening bilat, performed at [facility]. February 11, 2017, bilateral digital mammo screening bilat, performed at [facility]. FINDINGS: There are scattered fibroglandular densities. There has been no change in the appearance of the mammogram from the prior studies. There is a mild amount of residual fibroglandular tissue which is fairly symmetric. There is no interval development of dominant mass, architectural distortion, or clustered microcalcification suggestive of malignancy. Assessment: BI-RADS/ACR category 1 mammogram. Negative Mammogram. Recommendation Routine screening mammogram in 1 year (for women over age 40). This mammogram was interpreted with the aid of an FDA-approved computer-aided dectection system. Electronically Signed By: Enoc Mullen MD 06/01/19 0984
== END ==
LOC: M WHC 08:25
PROVIDERS: ATTEND Nurse Practitioner Adult Health
DX: Z12.31 Encounter for screening mammogram for malignant neoplasm of breast (principal); Z78.0 Asymptomatic menopausal state

== ENCOUNTER → 2020-02-14 | Outpatient (REF) | payer MEDICARE ==
[~2020-02-14] MED LIST changes: +AMLO1TAB24 PO; -AMLO5TAB6 PO; -ASPI81TA85 PO; +ASPI81TA86 PO; -FLUO20CA19 PO; +FLUO20CA22 PO; -LISI-1046 PO; +LISI2.5T2 PO; -METF-791 PO; +METF-838 PO; -OMEP-172 PO; +OMEP1CAP73 PO
== END ==
LOC: M LAB REF 08:35
PROVIDERS: ATTEND Nurse Practitioner Adult Health
DX: N18.9 Chronic kidney disease, unspecified (principal); D63.1 Anemia in chronic kidney disease

== ENCOUNTER → 2020-05-21 | Outpatient (REF) | payer MEDICARE ==
[~2020-05-21] MED LIST changes: +CALC-362 PO; -CHEW500C2 PO
== END ==
LOC: M LAB REF 12:58
PROVIDERS: ATTEND Nurse Practitioner Adult Health
DX: N18.32 Chronic kidney disease, stage 3b (principal); M85.80 Other specified disorders of bone density and structure, unspecified site

== ENCOUNTER → 2020-06-04 | Outpatient (CLI) | payer MEDICARE ==
--- NOTE | 2020-06-04 10:16 | REPMRS ---
Patient History The patient states she had a clinical breast exam in 05/2020 Patient is postmenopausal and is nulliparous. Family history of colorectal cancer at age 50 or over in maternal grandmother, pancreatic cancer at age 50 or over in brother, colorectal cancer at age 44 in unspecified relative. No Hormone Replacement Therapy Digital Woman Screen Mammo: June 04, 2020 - Exam #: [id number] Bilateral CC and MLO view(s) were taken. Technologist: Nita Hernandez, Technologist Prior study comparison: June 01, 2019, bilateral digital woman screen mammo performed at [facility]. June 02, 2018, bilateral digital mammo screening bilat, performed at [facility]. February 11, 2017, bilateral digital mammo screening bilat, performed at [facility]. FINDINGS: The breast tissue is almost entirely fat. The Volpara volumetric breast density category is: A. There is a 4 mm vernon density projecting in the middle 3rd of the left breast centrally on the craniocaudal view of today's study. This has somewhat irregular margins. It is difficult to localize on the MLO projection but it is believed to be visible centrally at the level of the nipple. This merits further evaluation. There has been no other change in the appearance of the mammogram from the prior studies. There is no other interval development of dominant mass, architectural distortion, or grouped microcalcification typical of malignancy. 3-D tomosynthesis shows no additional findings. Assessment: BI-RADS/ACR category 0 mammogram, Incomplete: Need additional imaging evaluation and/or prior mammograms for comparison. Recommendation Ultrasound and special view mammogram of the left breast. This patient's [facility] Lifetime Breast Cancer RIsk is estimated at 4.6 %. This mammogram was interpreted with the aid of an FDA-approved computer-aided dectection system. Electronically Signed By: Fernie Armenta MD 06/04/20 1016
--- NOTE | 2020-06-09 10:17 | DEXAMM ---
INDICATION: M85.80 [facility] DISRD OF BONE DENSITY AND STRUCTURE. COMPARISON: None. TECHNIQUE: Bone density was measured using dual-energy x-ray absorptiometry (DEXA). FINDINGS: AP SPINE L1-L4 BMD 1.796 g/cm2 Young Adult T-Score 4.9 Age Matched Z-Score 6.6. LT FEMUR, TOTAL BMD 1.069 g/cm2 Young Adult T-Score 0.5 Age Matched Z-Score 2.2. LT NECK BMD 0.951 g/cm2 Young Adult T-Score Age Matched Z-Score -0.6 1.3. RT FEMUR, TOTAL BMD 0.973 g/cm2 Young Adult T-Score -0.3 Age Matched Z-Score 1.4. RT NECK BMD 0.876 g/cm2 Young Adult T-Score -1.2 Age Matched Z-Score 0.7. IMPRESSION: There is normal bone density of the spine. There is normal bone density of the left hip. There is low bone density of the right hip. FOLLOW-UP: Recommendation for the next bone density exam: 2 years. <Electronically signed by Enoc Mullen > 06/09/20 1013
== END ==
LOC: M WHC 08:59
PROVIDERS: ATTEND Nurse Practitioner Adult Health
DX: R92.2 Inconclusive mammogram (principal); Z78.0 Asymptomatic menopausal state; M85.80 Other specified disorders of bone density and structure, unspecified site

== ENCOUNTER → 2020-06-19 | Outpatient (CLI) | payer MEDICARE ==
[~2020-06-19] MED LIST changes: -ALEN70TA74 PO; +ALEN70TA82 PO; -BUPR150T3 PO; +BUPR150T4 PO
--- NOTE | 2020-06-19 16:11 | REP ---
INDICATION: ADDITIONAL VIEWS LT BREAST; Z12.31 SCREENING MAMMO. COMPARISON: 06/04/2020 as well as other prior exams. TECHNIQUE: Spot compression views and additional tomographic sequences left breast performed. Focused left breast ultrasound performed. FINDINGS: There is persistence of a mildly lobulated 4 mm nodule in the 6 o'clock region of the left breast. This is approximately 5-6 cm from the nipple. Focused left breast ultrasound at the 6 o'clock region of the left breast fails to reveal a cystic or solid nodule corresponding to the mammographic abnormality. IMPRESSION: BIRADS/ACR category 4, suspicious. The new 4 mm nodule the 6 o'clock position of the left breast is confirmed. It cannot be identified by ultrasound and is therefore presumed to be solid. Recommend stereotactic biopsy. This mammogram was interpreted with the aid of an FDA-approved computer-aided detection system. The patient letter being requested is M4. RECOMMENDATION: Recommend stereotactic biopsy new left breast nodule. <Electronically signed by Enoc Mullen > 06/19/20 1002
== END ==
LOC: M WHC 08:09
PROVIDERS: ATTEND Nurse Practitioner Adult Health
DX: R92.2 Inconclusive mammogram (principal); N63.23 Unspecified lump in the left breast, lower outer quadrant; M85.80 Other specified disorders of bone density and structure, unspecified site

== ENCOUNTER → 2020-07-15 | Outpatient (CLI) | payer MEDICARE ==
[2020-07-15 10:58] VITALS: BP 120/66
--- NOTE | 2020-07-15 12:04 | REP ---
INDICATION: LT BREAST NODULE,POST STEREOTACTIC BIOPSY. Marker clip placement views. COMPARISON: Comparison mammography June 04, 2020 and June 19, 2020. TECHNIQUE: Craniocaudal and mediolateral views of the left breast are obtained. FINDINGS: Craniocaudal and mediolateral views of the left breast demonstrate a needle biopsy marker clip in approximately the 6 o'clock position of the left breast where prior mammography showed a small nodular vernon density. The vernon density is no longer apparent. IMPRESSION: Marker clip in good position left breast post biopsy. <Electronically signed by Fernie Armenta > 07/15/20 1200
--- NOTE | 2020-07-15 18:44 | REP ---
INDICATION: LT BREAST NODULE,STEREOTACTIC BIOPSY. COMPARISON: None. TECHNIQUE: The procedure was performed under the general supervision of Dr. Mullen. The patient has a history of a new 4 mm nodule in the 6 o'clock position of the left breast seen on a previous mammogram dated 06/19/2020. The risks and benefits of the procedure were explained to the patient and informed consent was obtained. A mediolateral approach was utilized. The nodule was localized using stereotactic mammographic guidance. 1% Xylocaine was used as a local anesthetic. An 10 gauge, suction assisted Mammotome needle was inserted and 6 core biopsy samples were obtained. A marker clip (HydroMARK shape 3) was placed at the biopsy site. The patient tolerated the procedure well and there were no immediate complications. After the appropriate amount of monitored convalescence, the patient was discharged from the department. FINDINGS: None IMPRESSION: Stereotactic left breast biopsy with a HydroMARK shape 3 marker clip placement. <Electronically signed by Saurav Acevedo > 07/15/20 1638 <Electronically signed by Enoc Mullen > 07/15/20 [id number]
== END ==
LOC: M WHCPRO 09:15
PROVIDERS: ATTEND Nurse Practitioner Adult Health
DX: N60.12 Diffuse cystic mastopathy of left breast (principal); N63.24 Unspecified lump in the left breast, lower inner quadrant

== ENCOUNTER → 2020-08-13 | Outpatient (REF) | payer MEDICARE ==
[~2020-08-13] MED LIST changes: +BUPR150T12 PO; -BUPR150T4 PO
== END ==
LOC: M LAB REF 16:15
PROVIDERS: ATTEND Nurse Practitioner Adult Health
DX: E83.52 Hypercalcemia (principal)

== ENCOUNTER → 2021-06-01 | Outpatient (REF) | payer MEDICARE, BC, OTHER ==
[~2021-06-01] MED LIST changes: -ALEN70SO PO; +ALEN70SO2 PO; +FLUO-96 PO; -FLUO20CA20 PO; -LISI2.5T2 PO; +LISI2.5T9 PO
== END ==
LOC: M LAB REF 17:51
PROVIDERS: ATTEND Internal Medicine Nephrology
DX: M81.0 Age-related osteoporosis without current pathological fracture (principal)

== ENCOUNTER 2021-10-16 11:03 | Emergency (ER) | payer MEDICARE ==
[~2021-10-16] VITALS: Ht 165.1 cm; Wt 95.9 kg
[2021-10-16] MEDS ORDERED: ACETAMINOPHEN 500 MG TAB PO ONE (14:30)
[2021-10-16] MEDS ORDERED: LIDOCAINE 5% (LIDODERM) PATCH TD ONE (14:30)
[2021-10-16] MEDS ORDERED: ASPE4PAD TOP (16:21)
[2021-10-16 16:34] VITALS: BP 125/60
[2021-10-17] MEDS ORDERED: **NOTE PATIENT COMMENT** MISC XX ONE (02:30)
[2021-10-19] MEDS ORDERED: ASPE4PAD TOP (08:52)
== END 2021-10-16 16:52 | disposition home or self-care (01) ==
LOC: M ED 11:03
DX: M54.50 Low back pain, unspecified (principal); R41.0 Disorientation, unspecified; W01.0XXA Fall on same level from slipping, tripping and stumbling without subsequent striking against object, initial encounter; I10 Essential (primary) hypertension; E11.9 Type 2 diabetes mellitus without complications; K21.9 Gastro-esophageal reflux disease without esophagitis; F41.9 Anxiety disorder, unspecified; Z79.899 Other long term (current) drug therapy

== ENCOUNTER → 2021-10-23 | Outpatient (REF) | payer MEDICARE ==
[~2021-10-23] MED LIST changes: +ACET-910 PO; +ALLO300T2 PO; +ASPE4PAD TOP; +BIOF4GEL4 TOP; +FAMO20TA4 PO; +FLAX1CAP5 PO; +LIDO1ADH20 TP; +MAGN400T35 PO; +NATU1TAB5 PO; +SYST1SOL4 OU
== END ==
PROVIDERS: ATTEND Nurse Practitioner Adult Health
DX: Z20.822 Contact with and (suspected) exposure to COVID-19 (principal)

== ENCOUNTER 2021-10-24 00:34 | Inpatient (IN) | payer MEDICARE ==
[~2021-10-24 00:34] MED LIST changes: -ACET-910 PO; -ALLO300T2 PO; -BIOF4GEL4 TOP; -FAMO20TA4 PO; -FLAX1CAP5 PO; -LIDO1ADH20 TP; -MAGN400T35 PO; -NATU1TAB5 PO; -SYST1SOL4 OU
[2021-10-24] MEDS ORDERED: ACETAMINOPHEN TAB 650MG DOSE (2X325MG) PO ONE (01:00)
[2021-10-24] MEDS ORDERED: NS 1,000 ML IV ONE (01:00)
[2021-10-24] MEDS ORDERED: FAMO20TA4 PO (02:24)
[2021-10-24] MEDS ORDERED: LIDO1ADH20 TP (02:24)
[2021-10-24] MEDS ORDERED: MAGN400T35 PO (02:24)
[2021-10-24] MEDS ORDERED: ALLO300T2 PO (02:24)
[2021-10-24] MEDS ORDERED: BIOF4GEL4 TOP (02:24)
[2021-10-24] MEDS ORDERED: FLAX1CAP5 PO (02:24)
[2021-10-24] MEDS ORDERED: ACET-910 PO (02:24)
[2021-10-24] MEDS ORDERED: SYST1SOL4 OU (02:24)
[2021-10-24] MEDS ORDERED: NATU1TAB5 PO (02:24)
[2021-10-24] MEDS ORDERED: HOME MED LIST COMPLETE! XX SCH (02:25)
[2021-10-24 02:36] LABS: BASO # 0.1 10^3/uL (0.0-0.2); BASO % 0.4 % (0.0-1.0); EOS % 0.2 % (0.0-3.0); HEMATOCRIT 34.3 % (36.0-47.0); HEMOGLOBIN 11.4 g/dl (12.0-15.5); LYMPH # 1.4 10^3/uL (1.5-5.0); LYMPH % 8.3 % (24.0-44.0); MEAN CORPUSCULAR HEMOGLOBIN 32.8 pg (27.0-33.0); MEAN CORPUSCULAR HGB CONC 33.2 g/dl (32.0-36.5); MEAN CORPUSCULAR VOLUME 98.6 fl (80.0-96.0); MONO % 10.4 % (2.0-8.0); NEUTROPHILS # 13.3 10^3/uL (1.5-8.5); NEUTROPHILS % 79.2 % (36.0-66.0); PLATELET COUNT, AUTOMATED 339 10^3/uL (150-450); RED BLOOD COUNT 3.48 10^6/uL (4.00-5.40); WHITE BLOOD COUNT 16.8 10^3/uL (4.0-10.0)
[2021-10-24 02:37] LABS: MONO # 1.8 10^3/uL (0.0-0.8)
[2021-10-24 03:33] LABS: ALBUMIN 2.1 GM/DL (3.2-5.2); ALT/SGPT 47 U/L (12-78); BILIRUBIN,DIRECT 0.3 MG/DL (0.0-0.2); BILIRUBIN,TOTAL 0.6 MG/DL (0.2-1.0); BLOOD UREA NITROGEN 20 MG/DL (7-18); CALCIUM LEVEL 9.7 MG/DL (8.8-10.2); CARBON DIOXIDE LEVEL 26 MEQ/L (21-32); CHLORIDE LEVEL 103 MEQ/L (98-107); CREATININE FOR GFR 0.95 MG/DL (0.55-1.30); GLOMERULAR FILTRATION RATE > 60.0 (>39); GLUCOSE, FASTING 138 MG/DL (70-100); LIPASE 278 U/L (73-393); SODIUM LEVEL 137 MEQ/L (136-145); TOTAL PROTEIN 7.4 GM/DL (6.4-8.2)
[2021-10-24 07:32] VITALS: O2SAT 98
[2021-10-24] MEDS ORDERED: ACETAMINOPHEN TAB 650MG DOSE (2X325MG) PO PRN (14:20)
[2021-10-24] MEDS ORDERED: KETOROLAC 30 MG/ML 1ML VIAL IV PRN (14:25)
[2021-10-24 15:00] VITALS: BP 123/68
[2021-10-24] MEDS: buPROPion **XL** TABLET 150MG (WELLBUTRIN XL) PO SCH (15:36)
[2021-10-24] MEDS: allopurinoL 300 MG TAB PO SCH (15:36)
[2021-10-24] MEDS ORDERED: POLYVINYL ALCOHOL OPHTH SOLN 15 ML(LIQUITEARS) OU PRN (16:05)
[2021-10-24] MEDS: PRAVASTATIN 20 MG TAB PO SCH (20:11)
[2021-10-24] MEDS: LATANOPROST 0.005% OPHTH SOLN 2.5 ML OU SCH (20:11)
[2021-10-24] MEDS: FLUoxetine 20MG CAP PO SCH (20:11)
[2021-10-24] MEDS: FAMOTIDINE 20 MG TAB PO SCH (20:11)
[2021-10-24 22:00] VITALS: BP 130/69
[2021-10-25 06:00] VITALS: BP 108/51
[2021-10-25 06:06] LABS: BASO # 0.1 10^3/uL (0.0-0.2); BASO % 0.3 % (0.0-1.0); EOS # 0.1 10^3/uL (0.0-0.5); EOS % 0.7 % (0.0-3.0); LYMPH # 2.2 10^3/uL (1.5-5.0); LYMPH % 14.9 % (24.0-44.0); MEAN CORPUSCULAR HEMOGLOBIN 32.5 pg (27.0-33.0); MEAN CORPUSCULAR HGB CONC 32.4 g/dl (32.0-36.5); MEAN CORPUSCULAR VOLUME 100.6 fl (80.0-96.0); MONO # 1.5 10^3/uL (0.0-0.8); MONO % 9.7 % (2.0-8.0); NEUTROPHILS % 73.1 % (36.0-66.0); PLATELET COUNT, AUTOMATED 323 10^3/uL (150-450); RED BLOOD COUNT 3.38 10^6/uL (4.00-5.40)
[2021-10-25] MEDS: LEVOTHYROXINE 137MCG TABLET (0.137MG) PO SCH (06:20)
[2021-10-25 06:21] LABS: BLOOD UREA NITROGEN 16 MG/DL (7-18); CALCIUM LEVEL 8.7 MG/DL (8.8-10.2); CARBON DIOXIDE LEVEL 26 MEQ/L (21-32); CHLORIDE LEVEL 104 MEQ/L (98-107); CREATININE FOR GFR 0.82 MG/DL (0.55-1.30); GLOMERULAR FILTRATION RATE > 60.0 (>39); GLUCOSE, FASTING 114 MG/DL (70-100); POTASSIUM SERUM 3.8 MEQ/L (3.5-5.1); SODIUM LEVEL 134 MEQ/L (136-145)
[2021-10-25] MEDS: buPROPion **XL** TABLET 150MG (WELLBUTRIN XL) PO SCH (09:44)
[2021-10-25] MEDS: allopurinoL 300 MG TAB PO SCH (09:45)
[2021-10-25] MEDS: BUMETANIDE 1 MG TAB PO SCH (09:45)
[2021-10-25] MEDS: MAGNESIUM OXIDE 400MG TAB (MAG-OX) PO SCH ×2 (09:45→20:47)
[2021-10-25] MEDS: ACETAMINOPHEN TAB 650MG DOSE (2X325MG) PO SCH ×2 (12:07→20:48)
[2021-10-25 14:00] VITALS: BP 120/60
[2021-10-25] MEDS ORDERED: KETOROLAC TROMETHAMINE 10 MG TAB PO PRN (20:40)
[2021-10-25] MEDS: FLUoxetine 20MG CAP PO SCH (20:47)
[2021-10-25] MEDS: FAMOTIDINE 20 MG TAB PO SCH (20:47)
[2021-10-25] MEDS: PRAVASTATIN 20 MG TAB PO SCH (20:48)
[2021-10-25] MEDS: LATANOPROST 0.005% OPHTH SOLN 2.5 ML OU SCH (20:50)
[2021-10-25 21:51] VITALS: BP 118/82
[2021-10-26] MEDS: LEVOTHYROXINE 137MCG TABLET (0.137MG) PO SCH (04:57)
[2021-10-26 06:00] VITALS: BP 127/58
[2021-10-26 07:34] LABS: BASO # 0.1 10^3/uL (0.0-0.2); BASO % 0.7 % (0.0-1.0); EOS # 0.1 10^3/uL (0.0-0.5); HEMATOCRIT 36.8 % (36.0-47.0); HEMOGLOBIN 11.8 g/dl (12.0-15.5); LYMPH # 1.7 10^3/uL (1.5-5.0); LYMPH % 14.1 % (24.0-44.0); MEAN CORPUSCULAR HEMOGLOBIN 32.3 pg (27.0-33.0); MEAN CORPUSCULAR HGB CONC 32.1 g/dl (32.0-36.5); MEAN CORPUSCULAR VOLUME 100.8 fl (80.0-96.0); MONO # 1.2 10^3/uL (0.0-0.8); NEUTROPHILS % 72.7 % (36.0-66.0); PLATELET COUNT, AUTOMATED 343 10^3/uL (150-450); RED BLOOD COUNT 3.65 10^6/uL (4.00-5.40); WHITE BLOOD COUNT 12.3 10^3/uL (4.0-10.0)
[2021-10-26 07:55] LABS: CALCIUM LEVEL 9.3 MG/DL (8.8-10.2); CREATININE FOR GFR 1.03 MG/DL (0.55-1.30); GLOMERULAR FILTRATION RATE 55.6 (>39); POTASSIUM SERUM 3.9 MEQ/L (3.5-5.1)
[2021-10-26] MEDS: BUMETANIDE 1 MG TAB PO SCH (09:16)
[2021-10-26] MEDS: allopurinoL 300 MG TAB PO SCH (09:17)
[2021-10-26] MEDS: MAGNESIUM OXIDE 400MG TAB (MAG-OX) PO SCH ×2 (09:17→20:53)
[2021-10-26] MEDS: ACETAMINOPHEN TAB 650MG DOSE (2X325MG) PO SCH ×2 (09:17→20:52)
[2021-10-26] MEDS: buPROPion **XL** TABLET 150MG (WELLBUTRIN XL) PO SCH (09:17)
[2021-10-26 14:00] VITALS: BP 126/69
[2021-10-26] MEDS ORDERED: CEPACOL LOZENGE PO PRN (18:55)
[2021-10-26 20:11] VITALS: BP 122/61
[2021-10-26] MEDS: BENZONATATE 100MG CAPSULE PO PRN (20:52)
[2021-10-26] MEDS: PRAVASTATIN 20 MG TAB PO SCH (20:52)
[2021-10-26] MEDS: LATANOPROST 0.005% OPHTH SOLN 2.5 ML OU SCH (20:53)
[2021-10-26] MEDS: FLUoxetine 20MG CAP PO SCH (20:53)
[2021-10-26] MEDS: FAMOTIDINE 20 MG TAB PO SCH (20:53)
[2021-10-27] MEDS: LEVOTHYROXINE 137MCG TABLET (0.137MG) PO SCH (05:23)
[2021-10-27 07:02] VITALS: BP 120/60
[2021-10-27 07:05] LABS: BASO # 0.1 10^3/uL (0.0-0.2); BASO % 0.8 % (0.0-1.0); EOS # 0.2 10^3/uL (0.0-0.5); EOS % 1.3 % (0.0-3.0); HEMATOCRIT 37.5 % (36.0-47.0); LYMPH # 2.2 10^3/uL (1.5-5.0); LYMPH % 16.2 % (24.0-44.0); MEAN CORPUSCULAR HEMOGLOBIN 32.2 pg (27.0-33.0); MEAN CORPUSCULAR VOLUME 100.5 fl (80.0-96.0); MONO # 1.4 10^3/uL (0.0-0.8); MONO % 10.4 % (2.0-8.0); NEUTROPHILS # 9.5 10^3/uL (1.5-8.5); NEUTROPHILS % 69.5 % (36.0-66.0); PLATELET COUNT, AUTOMATED 380 10^3/uL (150-450); RED BLOOD COUNT 3.73 10^6/uL (4.00-5.40); WHITE BLOOD COUNT 13.6 10^3/uL (4.0-10.0)
[2021-10-27 07:08] LABS: CALCIUM LEVEL 10.1 MG/DL (8.8-10.2); CREATININE FOR GFR 1.08 MG/DL (0.55-1.30); GLOMERULAR FILTRATION RATE 52.7 (>39); POTASSIUM SERUM 3.9 MEQ/L (3.5-5.1)
[2021-10-27] MEDS: BUMETANIDE 1 MG TAB PO SCH ×2 (09:00→09:38)
[2021-10-27] MEDS: MAGNESIUM OXIDE 400MG TAB (MAG-OX) PO SCH ×2 (09:38→21:13)
[2021-10-27] MEDS: buPROPion **XL** TABLET 150MG (WELLBUTRIN XL) PO SCH (09:38)
[2021-10-27] MEDS: allopurinoL 300 MG TAB PO SCH (09:38)
[2021-10-27] MEDS: ACETAMINOPHEN TAB 650MG DOSE (2X325MG) PO SCH ×2 (09:39→21:13)
[2021-10-27 14:00] VITALS: BP 136/74
[2021-10-27] MEDS: PRAVASTATIN 20 MG TAB PO SCH (21:12)
[2021-10-27] MEDS: FAMOTIDINE 20 MG TAB PO SCH (21:12)
[2021-10-27] MEDS: LATANOPROST 0.005% OPHTH SOLN 2.5 ML OU SCH (21:13)
[2021-10-27] MEDS: FLUoxetine 20MG CAP PO SCH (21:13)
[2021-10-27] MEDS: BENZONATATE 100MG CAPSULE PO PRN (21:18)
[2021-10-27 22:00] VITALS: BP 128/66
[2021-10-28] MEDS: LEVOTHYROXINE 137MCG TABLET (0.137MG) PO SCH (05:19)
[2021-10-28 06:00] VITALS: BP 117/68
[2021-10-28 06:21] LABS: BASO # 0.1 10^3/uL (0.0-0.2); BASO % 0.9 % (0.0-1.0); EOS # 0.2 10^3/uL (0.0-0.5); EOS % 1.3 % (0.0-3.0); HEMOGLOBIN 11.3 g/dl (12.0-15.5); LYMPH # 2.5 10^3/uL (1.5-5.0); LYMPH % 19.5 % (24.0-44.0); MEAN CORPUSCULAR HEMOGLOBIN 33.3 pg (27.0-33.0); MEAN CORPUSCULAR HGB CONC 33.2 g/dl (32.0-36.5); MEAN CORPUSCULAR VOLUME 100.3 fl (80.0-96.0); MONO # 1.3 10^3/uL (0.0-0.8); MONO % 10.3 % (2.0-8.0); NEUTROPHILS # 8.5 10^3/uL (1.5-8.5); PLATELET COUNT, AUTOMATED 369 10^3/uL (150-450); RED BLOOD COUNT 3.39 10^6/uL (4.00-5.40); WHITE BLOOD COUNT 12.9 10^3/uL (4.0-10.0)
[2021-10-28 06:38] LABS: CALCIUM LEVEL 9.4 MG/DL (8.8-10.2); CREATININE FOR GFR 1.06 MG/DL (0.55-1.30); GLOMERULAR FILTRATION RATE 53.8 (>39)
[2021-10-28] MEDS: buPROPion **XL** TABLET 150MG (WELLBUTRIN XL) PO SCH (08:10)
[2021-10-28] MEDS: BUMETANIDE 1 MG TAB PO SCH (08:10)
[2021-10-28] MEDS: allopurinoL 300 MG TAB PO SCH (08:10)
[2021-10-28] MEDS: ACETAMINOPHEN TAB 650MG DOSE (2X325MG) PO SCH (08:11)
[2021-10-28] MEDS: MAGNESIUM OXIDE 400MG TAB (MAG-OX) PO SCH (08:11)
[2021-10-28] MEDS ORDERED: BENZ-18 PO (12:00)
== END 2021-10-28 12:25 | DRG 552 ==
LOC: M ED 00:34 → M ED INP 13:42 → ENRESERV 14:36 → M MS5PR 15:11
PROVIDERS: ADMIT Internal Medicine Nephrology; ATTEND Family Medicine
DX: M51.36 Other intervertebral disc degeneration, lumbar region (principal); E03.9 Hypothyroidism, unspecified; M10.9 Gout, unspecified; G47.33 Obstructive sleep apnea (adult) (pediatric); I10 Essential (primary) hypertension; E78.5 Hyperlipidemia, unspecified; E11.9 Type 2 diabetes mellitus without complications; E66.01 Morbid (severe) obesity due to excess calories; M19.90 Unspecified osteoarthritis, unspecified site; M81.0 Age-related osteoporosis without current pathological fracture; Z96.652 Presence of left artificial knee joint; M17.11 Unilateral primary osteoarthritis, right knee; Z79.899 Other long term (current) drug therapy; Z88.0 Allergy status to penicillin; M51.34 Other intervertebral disc degeneration, thoracic region

== ENCOUNTER → 2021-11-18 | Outpatient (REF) | payer MEDICARE, MEDICAID ==
[~2021-11-18] MED LIST changes: +ACET-910 PO; +ALLO300T2 PO; +BENZ-18 PO; +BIOF4GEL4 TOP; +FAMO20TA4 PO; +FLAX1CAP5 PO; +LIDO1ADH20 TP; +MAGN400T35 PO; +NATU1TAB5 PO; +SYST1SOL4 OU
== END ==
LOC: M LAB REF 16:11
PROVIDERS: ATTEND Nurse Practitioner Adult Health
DX: E83.52 Hypercalcemia (principal)

== ENCOUNTER 2022-03-12 17:01 | Emergency (ER) | payer MEDICARE, MEDICAID ==
[~2022-03-12] VITALS: Ht 165.1 cm; Wt 99.1 kg
[~2022-03-12 17:01] MED LIST changes: +ALEN70TA87 PO; -FOSA70TA PO
[2022-03-12 17:18] VITALS: BP 128/57
[2022-03-12 20:41] LABS: BASO # 0.1 10^3/uL (0.0-0.2); BASO % 0.3 % (0.0-1.0); EOS % 0.1 % (0.0-3.0); HEMATOCRIT 34.1 % (36.0-47.0); HEMOGLOBIN 11.2 g/dl (12.0-15.5); LYMPH # 1.3 10^3/uL (1.5-5.0); LYMPH % 7.3 % (24.0-44.0); MEAN CORPUSCULAR HEMOGLOBIN 33.3 pg (27.0-33.0); MEAN CORPUSCULAR HGB CONC 32.8 g/dl (32.0-36.5); MEAN CORPUSCULAR VOLUME 101.5 fl (80.0-96.0); MONO # 1.8 10^3/uL (0.0-0.8); MONO % 10.5 % (2.0-8.0); NEUTROPHILS # 13.9 10^3/uL (1.5-8.5); NEUTROPHILS % 80.6 % (36.0-66.0); PLATELET COUNT, AUTOMATED 359 10^3/uL (150-450); RED BLOOD COUNT 3.36 10^6/uL (4.00-5.40); WHITE BLOOD COUNT 17.2 10^3/uL (4.0-10.0)
[2022-03-12] MEDS ORDERED: ISOVUE-370 76% 100ML VIAL As Ordered ONE (20:46)
[2022-03-12 21:19] LABS: APPEARANCE, URINE MANUAL HAZY (CLEAR); COLOR, URINE MANUAL YELLOW (YELLOW)
[2022-03-12 21:20] LABS: BILIRUBIN, URINE MANUAL NEGATIVE (NEGATIVE); BLOOD URINE MANUAL NEGATIVE (NEGATIVE); GLUCOSE, URINE (UA) MANUAL NEGATIVE (NEGATIVE); KETONE, URINE MANUAL NEGATIVE (NEGATIVE); NITRITE, URINE MANUAL NEGATIVE (NEGATIVE); PROTEIN, URINE MANUAL NEGATIVE (NEGATIVE); UROBILINOGEN, URINE MANUAL NORMAL (NORMAL)
[2022-03-12 21:21] LABS: LEUKOCYTE ESTERASE, URINE MAN NEGATIVE (NEGATIVE)
[2022-03-12 21:25] LABS: RBC, URINE 0-1 /hpf (0-3); WBC, URINE 0-1 /hpf (0-3)
[2022-03-12 21:26] LABS: SQUAMOUS EPITHELIAL CELL URINE MOD AMOUNT /hpf (SMALL AMT)
[2022-03-12 21:29] LABS: AMORPHOUS SEDIMENT, URINE LARGE AMOUNT (NEGATIVE); BACTERIA, URINE NONE SEEN; HYALINE CAST, URINE NONE SEEN /lpf (0-1)
[2022-03-12] MEDS ORDERED: NORCO, ANEXSIA 5/325MG TABLET (HYDROcodone/ACETAMINOPHEN) PO ONE (22:40)
== END 2022-03-13 00:29 | disposition home or self-care (01) ==
LOC: M ED 17:01
DX: S22.41XA Multiple fractures of ribs, right side, initial encounter for closed fracture (principal); N28.1 Cyst of kidney, acquired; C78.00 Secondary malignant neoplasm of unspecified lung; C78.7 Secondary malignant neoplasm of liver and intrahepatic bile duct; C18.9 Malignant neoplasm of colon, unspecified; K57.30 Diverticulosis of large intestine without perforation or abscess without bleeding; M54.50 Low back pain, unspecified; E11.9 Type 2 diabetes mellitus without complications; K21.9 Gastro-esophageal reflux disease without esophagitis; E78.5 Hyperlipidemia, unspecified; F32.A Depression, unspecified; Z87.442 Personal history of urinary calculi; Z86.79 Personal history of other diseases of the circulatory system; Z88.0 Allergy status to penicillin; Z79.899 Other long term (current) drug therapy; Z79.84 Long term (current) use of oral hypoglycemic drugs; Y92.9 Unspecified place or not applicable; Y93.9 Activity, unspecified
CPT/HCPCS: 36415; 71250; 74177; 80047; 81000; 83605; 85025; 87040; 99284; Q9967

== ENCOUNTER 2022-03-15 13:46 | Inpatient (IN) | payer MEDICARE, MEDICAID ==
[~2022-03-15] VITALS: Ht 165.1 cm; Wt 89.5 kg
[2022-03-15 14:38] LABS: BASO % 0.2 % (0.0-1.0); EOS # 0.1 10^3/uL (0.0-0.5); EOS % 0.4 % (0.0-3.0); HEMATOCRIT 32.4 % (36.0-47.0); HEMOGLOBIN 10.4 g/dl (12.0-15.5); LYMPH % 11.6 % (24.0-44.0); MEAN CORPUSCULAR HEMOGLOBIN 32.4 pg (27.0-33.0); MEAN CORPUSCULAR HGB CONC 32.1 g/dl (32.0-36.5); MEAN CORPUSCULAR VOLUME 100.9 fl (80.0-96.0); MONO # 1.4 10^3/uL (0.0-0.8); NEUTROPHILS # 13.4 10^3/uL (1.5-8.5); NEUTROPHILS % 78.9 % (36.0-66.0); PLATELET COUNT, AUTOMATED 336 10^3/uL (150-450); RED BLOOD COUNT 3.21 10^6/uL (4.00-5.40)
[2022-03-15 15:22] LABS: CALCIUM LEVEL 9.2 MG/DL (8.8-10.2); CREATININE FOR GFR 1.05 MG/DL (0.55-1.30); GLOMERULAR FILTRATION RATE 54.2 (>39); POTASSIUM SERUM 4.2 MEQ/L (3.5-5.1)
[2022-03-15] MEDS: MORPHINE 2 MG/ML 1ML VIAL IV PRN ×2 (16:38→17:13)
[2022-03-15 17:53] LABS: RSV AMPLIFICATION NEGATIVE (NEGATIVE)
[2022-03-15] MEDS ORDERED: MORPHINE 2 MG/ML 1ML VIAL IV PRN (18:20)
[2022-03-15] MEDS ORDERED: BUME1TAB3 PO (19:16)
[2022-03-15] MEDS ORDERED: REFR0.5D8 OU (19:16)
[2022-03-15] MEDS ORDERED: HOME MED LIST COMPLETE! XX SCH (19:20)
[2022-03-15 19:44] LABS: HEMOGLOBIN A1c 5.3 %
[2022-03-15 20:22] LABS: FREE T4 1.47 NG/DL (0.76-1.46); THYROID STIMULATING HORMONE 3.24 uIU/ML (0.358-3.740)
[2022-03-15] MEDS ORDERED: PRAVASTATIN 20 MG TAB PO SCH (21:00)
[2022-03-15 21:25] LABS: FERRITIN 609 NG/ML (8-252); IRON (FE) 16 UG/DL (50-170); PERCENT SATURATION 13.9 % (13.2-45.0); TOTAL IRON BINDING CAPACITY 115 UG/DL (250-450); VITAMIN B12 LEVEL > 2000 PG/ML (247-911)
[2022-03-15 21:40] VITALS: BP 128/70
[2022-03-15] MEDS: traZODone 50 MG TAB PO PRN (22:21)
[2022-03-15] MEDS: FLUoxetine 20MG CAP PO SCH (22:21)
[2022-03-15] MEDS: KETOROLAC 30 MG/ML 1ML VIAL IV PRN (22:22)
[2022-03-15] MEDS: LATANOPROST 0.005% OPHTH SOLN 2.5 ML OU SCH (22:46)
[2022-03-16 06:00] VITALS: BP 125/60
[2022-03-16] MEDS ORDERED: LEVOTHYROXINE 137MCG TABLET (0.137MG) PO SCH (06:00)
[2022-03-16 06:44] LABS: BASO # 0.1 10^3/uL (0.0-0.2); BASO % 0.4 % (0.0-1.0); EOS # 0.2 10^3/uL (0.0-0.5); EOS % 1.1 % (0.0-3.0); HEMATOCRIT 32.8 % (36.0-47.0); HEMOGLOBIN 10.5 g/dl (12.0-15.5); LYMPH % 14.4 % (24.0-44.0); MEAN CORPUSCULAR VOLUME 103.1 fl (80.0-96.0); MONO # 1.4 10^3/uL (0.0-0.8); MONO % 9.9 % (2.0-8.0); NEUTROPHILS # 10.3 10^3/uL (1.5-8.5); NEUTROPHILS % 72.9 % (36.0-66.0); PLATELET COUNT, AUTOMATED 358 10^3/uL (150-450); RED BLOOD COUNT 3.18 10^6/uL (4.00-5.40); WHITE BLOOD COUNT 14.1 10^3/uL (4.0-10.0)
[2022-03-16 07:01] LABS: CALCIUM LEVEL 8.7 MG/DL (8.8-10.2); CREATININE FOR GFR 1.12 MG/DL (0.55-1.30); GLOMERULAR FILTRATION RATE 50.4 (>39); MAGNESIUM LEVEL 2.4 MG/DL (1.8-2.4); PHOSPHORUS LEVEL 3.5 MG/DL (2.5-4.9); POTASSIUM SERUM 3.5 MEQ/L (3.5-5.1)
[2022-03-16] MEDS ORDERED: allopurinoL 300 MG TAB PO SCH (09:00)
[2022-03-16] MEDS ORDERED: ENOXAPARIN 40MG/0.4ML SYRINGE (J1650 PER 10MG) SC SCH (09:00)
[2022-03-16] MEDS ORDERED: PREVNAR-20 VACCINE 0.5ML SYRINGE IM.IMMUN ONE (09:00)
[2022-03-16] MEDS ORDERED: DOCUSATE SODIUM 100MG CAPSULE PO SCH (09:00)
[2022-03-16] MEDS ORDERED: FLUBLOK(EGG FREE)(QUAD)INFLUENZA VACC 0.5ML SYRINGE 18YRS & OLDER IM.IMMUN ONE (09:00)
[2022-03-16] MEDS ORDERED: BUMETANIDE 1 MG TAB PO SCH (09:00)
[2022-03-16] MEDS ORDERED: FERROUS SULFATE 325MG TAB PO SCH (09:00)
[2022-03-16] MEDS: LIDOCAINE 5% (LIDODERM) PATCH TD SCH (09:52)
[2022-03-16] MEDS: CALCIUM/VITAMIN D 500 MG TAB PO SCH (09:53)
[2022-03-16] MEDS: FAMOTIDINE 20 MG TAB PO SCH (09:53)
[2022-03-16] MEDS: buPROPion **XL** TABLET 150MG (WELLBUTRIN XL) PO SCH (09:53)
[2022-03-16] MEDS: KETOROLAC 30 MG/ML 1ML VIAL IV PRN ×2 (09:54→21:10)
[2022-03-16] MEDS ORDERED: PERCOCET 5MG/325MG TAB PO PRN (11:50)
[2022-03-16 14:00] VITALS: BP 126/68
[2022-03-16] MEDS ORDERED: LORazepam 1 MG TAB PO PRN (15:15)
[2022-03-16] MEDS: FLUoxetine 20MG CAP PO SCH (21:09)
[2022-03-16] MEDS: traZODone 50 MG TAB PO PRN (21:09)
[2022-03-16] MEDS: LATANOPROST 0.005% OPHTH SOLN 2.5 ML OU SCH (21:10)
[2022-03-16] MEDS: MIRALAX *UNIT DOSE* 17GM PACKET PO SCH (21:10)
[2022-03-16] MEDS: **NOTE PATIENT COMMENT** MISC XX SCH (21:11)
[2022-03-17] MEDS: MORPHINE 10MG/0.5ML ORAL CONCENTRATE SOLUTION U/D SL PRN ×4 (05:24→20:37)
[2022-03-17 07:08] LABS: FOLATE 3.9 ng/mL (>3.0)
[2022-03-17] MEDS: CALCIUM/VITAMIN D 500 MG TAB PO SCH (09:02)
[2022-03-17] MEDS: FAMOTIDINE 20 MG TAB PO SCH (09:02)
[2022-03-17] MEDS: MIRALAX *UNIT DOSE* 17GM PACKET PO SCH ×2 (09:02→20:36)
[2022-03-17] MEDS: buPROPion **XL** TABLET 150MG (WELLBUTRIN XL) PO SCH (09:02)
[2022-03-17] MEDS: LIDOCAINE 5% (LIDODERM) PATCH TD SCH (09:03)
[2022-03-17 14:11] VITALS: BP 155/77
[2022-03-17] MEDS: LATANOPROST 0.005% OPHTH SOLN 2.5 ML OU SCH (20:36)
[2022-03-17] MEDS: FLUoxetine 20MG CAP PO SCH (20:36)
[2022-03-17] MEDS: **NOTE PATIENT COMMENT** MISC XX SCH (20:48)
[2022-03-18] MEDS: FAMOTIDINE 20 MG TAB PO SCH (08:21)
[2022-03-18] MEDS: buPROPion **XL** TABLET 150MG (WELLBUTRIN XL) PO SCH (08:21)
[2022-03-18] MEDS: MIRALAX *UNIT DOSE* 17GM PACKET PO SCH (08:21)
[2022-03-18] MEDS: LIDOCAINE 5% (LIDODERM) PATCH TD SCH (08:21)
[2022-03-18] MEDS: CALCIUM/VITAMIN D 500 MG TAB PO SCH (08:21)
[2022-03-18] MEDS ORDERED: ATIV1TAB7 PO (09:38)
[2022-03-18] MEDS ORDERED: COLA100C5 PO (09:38)
[2022-03-18] MEDS ORDERED: SENN-120 PO (09:38)
[2022-03-18] MEDS ORDERED: DULC10SU2 PR (09:38)
[2022-03-18] MEDS ORDERED: MIRA1POW3 PO (09:38)
[2022-03-18] MEDS ORDERED: LIDO5TD TD (09:38)
[2022-03-18] MEDS ORDERED: MORP1SOL SL (09:38)
== END 2022-03-18 11:10 | DRG 206 ==
LOC: M ED 13:46 → EDBD 13:46 → M ED INP 17:55 → M MSPAV 21:35
PROVIDERS: ADMIT Internal Medicine; ATTEND Internal Medicine
DX: S22.31XA Fracture of one rib, right side, initial encounter for closed fracture (principal); C78.00 Secondary malignant neoplasm of unspecified lung; C78.7 Secondary malignant neoplasm of liver and intrahepatic bile duct; C18.9 Malignant neoplasm of colon, unspecified; C77.2 Secondary and unspecified malignant neoplasm of intra-abdominal lymph nodes; E66.01 Morbid (severe) obesity due to excess calories; I10 Essential (primary) hypertension; E03.9 Hypothyroidism, unspecified; E11.9 Type 2 diabetes mellitus without complications; D53.9 Nutritional anemia, unspecified; E78.5 Hyperlipidemia, unspecified; G47.33 Obstructive sleep apnea (adult) (pediatric); D72.829 Elevated white blood cell count, unspecified; M10.9 Gout, unspecified; Z96.652 Presence of left artificial knee joint; R29.6 Repeated falls; M19.90 Unspecified osteoarthritis, unspecified site; K59.00 Constipation, unspecified; M81.0 Age-related osteoporosis without current pathological fracture; F32.A Depression, unspecified; Z79.899 Other long term (current) drug therapy; Z88.0 Allergy status to penicillin; Z66 Do not resuscitate; Z51.5 Encounter for palliative care; F41.9 Anxiety disorder, unspecified; Z68.32 Body mass index [BMI] 32.0-32.9, adult; W18.30XA Fall on same level, unspecified, initial encounter; Y92.009 Unspecified place in unspecified non-institutional (private) residence as the place of occurrence of the external cause

== ENCOUNTER → 2022-03-19 | Outpatient (REF) | payer MEDICARE, MEDICAID, BC, OTHER ==
[~2022-03-19] MED LIST changes: +ATIV1TAB7 PO; +BUME1TAB3 PO; +COLA100C5 PO; +DULC10SU2 PR; +LIDO5TD TD; +MIRA1POW3 PO; +MORP1SOL SL; +REFR0.5D8 OU; +SENN-120 PO
== END ==
PROVIDERS: ATTEND Physician Assistant
DX: R50.9 Fever, unspecified (principal)